=== PATIENT | female | born 1930 | race Caucasian/White ===

== ENCOUNTER 2016-04-23 04:03 | Inpatient (IN) | payer MEDICARE, BC ==
--- NOTE | ~2016-04-23 | CO ---
Unit #: [id number] #: [id number] Patient: TALISHA THOMPSON [id number] [address] [address] [id number] I MR#: [id number] NAME: TALISHA THOMPSON ROOM: 203 Age: 85 Sex: F Admission Date: 04/23/2016 : 1930 Attending Physician: Devante Ford M.D. Primary Care Physician: Agustin Jones D.O. Consultation Date: 04/23/2016 CONSULTATION REPORT REASON FOR CONSULTATION Small bowel obstruction. Thank you very much for asking us to see Ms. Thompson. HISTORY OF PRESENT ILLNESS She is an 85-year-old white female, who presents at this time with abdominal pain, nausea, and vomiting. This is dramatically better at this time. She has had multiple admissions for partial small bowel obstruction in the past which have resolved with conservative therapy. She has had multiple previous abdominal surgeries including a colonic resection and cholecystectomy as well as ventral hernia repair. She had a CT scan performed, which revealed a high-grade small bowel obstruction which is similar to what she has had in the past. She denies any GI bleeding. She states she feels dramatically better. Of note, she states she was discharged home from [facility] yesterday after being treated for a "mini stroke." PAST MEDICAL HISTORY Atrial fibrillation, myocardial infarction, hypertension, depression, reflux, bronchitis, COPD, diverticulitis, hysterectomy, partial colectomy, ventral hernia, benign breast biopsy, carpal tunnel release, fractured ankle, back surgery, bladder repair, hypothyroidism. ALLERGIES Penicillin and sulfa. MEDICATIONS Please see med rec sheet. FAMILY HISTORY Noncontributory. SOCIAL HISTORY No tobacco or alcohol use. REVIEW OF SYSTEMS Negative except for above. IMMUNIZATION STATUS Unknown. PHYSICAL EXAMINATION Unit #: [id number] #: [id number] Patient: TALISHA THOMPSON GENERAL: Well-developed, well-nourished white female, in no apparent distress. Awake, alert, and oriented VITAL SIGNS: Temperature is 97.7, pulse 79, respirations are 20, blood pressure 129/73. NECK: Supple. No thyromegaly or adenopathy. BACK: No CVA or spinous tenderness. ABDOMEN: Flat, soft, nontender. No palpable hernias were present. No rebound, peritoneal signs, or masses. DIAGNOSTIC STUDIES LABORATORY RESULTS: Reveal the patient to have a CMP that shows a glucose of 148, BUN 30, chloride 96, and normal liver function studies. PT is 19.9, PTT is 30.1. White count is 13.8, hemoglobin 16.1, hematocrit 48.3. Urinalysis is negative nitrites, trace leukocyte esterase. IMPRESSION An 85-year-old female with a recurrent partial small bowel obstruction. She feels dramatically better at this time. We will discontinue her NG tube and continue n.p.o., advise to check films in the morning. She may need a small-bowel follow-through. The patient requested Dr. Mccarthy to see the patient for evaluation as well. We will make arrangements for this. Dictated by... Mateus Alcaraz/trinity TD: 04/24/2016 01:42 JOB #: [id number] CC: Leonardo Mccarthy M.D. [facility] CONSULTATION REPORT X Henry Nguyen MD X CONSULTATION REPORT
--- NOTE | ~2016-04-23 | CR2 ---
[facility] A Service of [facility] & [facility] RADIOLOGY TEXT RESULTS PATIENT: TALISHA THOMPSON LOCATION: C2A : 32 UNIT #: [id number] AGE: [address]: Devante Ford MD SEX: F ORDER DR: [id number] [facility] [address] [place], [place] [address] [id number] I MR#: [id number] Acc #: [id number] NAME: TALISHA THOMPSON : 1930 SEX: F STUDY DATE/TIME: 04/24/2016 07:46 UNIT: C2A ROOM: 203 STUDY DESCRIPTION: CR Abdomen Acute Series Attending Physician: Devante Ford M.D. Ordering Physician: Henry Nguyen M.D. Primary Care Physician: Agustin Jones D.O. MEDICAL IMAGING REPORT This report is preliminary unless electronic signature is present EXAM Acute abdomen series 04/24/2016 0746 hours HISTORY 5-day history of vomiting, nausea and small bowel obstruction for followup. COMPARISON CT abdomen 04/23/2016 and chest x-ray 04/20/2016. FINDINGS Portable upright chest demonstrates mild cardiomegaly. The aorta is tortuous without change. The lungs are clear and there are no effusions. Supine and upright views of the abdomen demonstrate no free air. There is contrast material within the colon demonstrating progression beyond the point of transition in the left lower quadrant seen on the CT scan of 04/23/2016. On that scan at 0543 hours on 04/23/2016, the oral contrast material was in the stomach. It has traversed to the sigmoid colon. There is a decrease in the amount of small bowel dilatation suggesting interval improvement. Multiple surgical clips are noted in the left upper quadrant and left lower quadrant. IMPRESSION 1. No acute findings in the chest. 2. There is less small bowel distension than seen on CT scan 04/23/2016. There is oral contrast material in the right colon, transverse colon and descending colon. This contrast was in the stomach on the CT of 04/23/2016 at 0543 hours suggesting that the small bowel obstruction is improved or intermittent. 3. No suspicious calcifications. Dictated by... Diane Verma M.D. [facility] A Service of [facility] RADIOLOGY TEXT RESULTS PATIENT: TALISHA THOMPSON LOCATION: [facility] 203-01 : 32 UNIT #: [id number] AGE: [address]: Devante Ford MD SEX: F ORDER DR: THIS IS AN ELECTRONICALLY VERIFIED REPORT Diane Verma M.D. at 04/24/2016 11:43 AM ETELVINA/dianne TD: 04/24/2016 09:21 JOB #: [id number] MEDICAL IMAGING REPORT COPY
--- NOTE | ~2016-04-23 | HP ---
Unit #: [id number] #: [id number] Patient: TALISHA THOMPSON [id number] [address] [place], [place] [address] [id number] I MR#: [id number] NAME: TALISHA THOMPSON ROOM: 203 Age: 85 Sex: F Admission Date: 04/23/2016 : 1930 Attending Physician: Devante Ford M.D. Primary Care Physician: Agustin Jones D.O. HISTORY AND PHYSICAL CHIEF COMPLAINT Abdominal pain, nausea and vomiting. HISTORY OF PRESENT ILLNESS The patient is an 85-year-old lady with a past medical history of diverticulosis, history of glmn-kc-wocv colocolonic anastomosis near the ileosigmoid colon, A fib - on chronic anticoagulation, hypertension. Presented to the [facility] Emergency Room with the chief complaint of nausea and vomiting. She was complaining of diffuse abdominal pain. She mentions she woke up in the night during sleep because of abdominal pain, nausea and vomiting. In the emergency room on initial workup she was noted to have a small bowel obstruction. She had an NG tube placed. A lot of food was aspirated, and slowly the pain was relieved. She mentions she had a bowel movement yesterday morning. Denies noting any blood in her stool. Denies any diarrhea. Denies any (1) recently. The ER physician spoke with Dr. Mueller with [facility], and the patient was transferred here for further care. She was seen by Dr. Mccarthy, also, in the past. PAST MEDICAL HISTORY 1. History of A fib, on anticoagulation with Coumadin. 2. COPD. 3. History of small bowel obstruction. 4. History of congestive heart failure. 5. Hypertension. 6. GERD. 7. Depression. 8. History of GA in 2000. 9. History of stroke in the past and a TIA. She was recently discharged less than a week ago from [facility] where she was admitted for TIA-like symptoms. ALLERGIES Penicillin, sulfa and Dilaudid. PAST SURGICAL HISTORY Hysterectomy, abdominal hernia repair x2, history of left breast cyst surgery, right ankle and bilateral carpal tunnel surgeries, bilateral cataract surgery, right thumb surgery, back surgery, bladder repair, history of colon resection. Unit #: [id number] #: [id number] Patient: TALISHA THOMPSON HOME MEDICATIONS 1. Toprol XL 50 mg daily. 2. Cardizem 180 mg daily. 3. Remeron 30 mg q.p.m. 4. Phenergan 25 mg q.6 p.r.n. nausea and vomiting. 5. Bupropion SR 300 mg daily. 6. Ventolin 2 puffs q.i.d. 7. Albuterol 3 mL nebulizations q.i.d. 8. Lumigan 1 drop daily both eyes. 9. Colace 100 mg daily. 10. Flonase 0.05% nasal spray daily. 11. Vitamin D 1,000 units p.o. daily. 12. Tylenol p.r.n. 13. Coumadin 4 mg daily except Mondays and . Those days she is supposed to be on 5 mg. 14. KCl 10 mEq daily. 15. Nitroglycerin 0.4 mg sublingual p.r.n. chest pain. 16. Lasix 40 mg daily. 17. Lipitor 10 mg at bedtime. 18. Aspirin 81 mg daily. 19. Protonix 40 mg daily. 20. Bentyl 20 mg p.o. q.6 p.r.n. stomach cramps. SOCIAL HISTORY Denies any current smoking, alcohol. FAMILY HISTORY Noncontributory to the current admission. REVIEW OF SYSTEMS A complete review of systems is done; negative except for what is mentioned in the HPI. PHYSICAL EXAMINATION VITAL SIGNS: Temperature 97.7, pulse rate 79, recently rate 20, blood pressure 129/73. GENERAL: The patient is alert and oriented x3, lying in the bed. No acute distress. HEENT: Normocephalic, atraumatic. No icterus. PERRLA. Extraocular muscles are intact. She does have an NG tube in place. HEART: S1, S2. Regular rate and rhythm. CHEST: Bilaterally equal air entry. Clear to auscultation. ABDOMEN: Soft, nondistended. Bowel sounds decreased. EXTREMITIES: No edema. Normal pulses. DIAGNOSTIC DATA LABORATORY: Glucose 148, BUN 30, creatinine 1.3, sodium 138, potassium 3.8, chloride 96, bicarb 30. WBC 13.8, hemoglobin 16.1, platelet count 269. ASSESSMENT AND PLAN 1. Small bowel obstruction. Will keep her NPO. Will give her IV fluids. Continue with NG suction. Will consult [facility] and will go from their input. Morphine p.r.n. and p.r.n. Zofran. 2. History of hypertension. She was on beta-blockers and multiple other medications. Will keep her on p.r.n. hydralazine and, if required, will consider starting her on p.r.n. beta-kyle. 3. A fib, on chronic anticoagulation with Coumadin. Will keep her on Lovenox and for now hold Coumadin. Unit #: [id number] #: [id number] Patient: TALISHA THOMPSON 4. History of depression. Will hold her oral medications at this point. Will monitor and replace her electrolytes. 5. Further recommendations per hospital course. Dictated by Mateus Coombs TD: 04/23/2016 10:29 JOB #: [id number] HISTORY AND PHYSICAL X X HISTORY AND PHYSICAL
--- NOTE | ~2016-04-23 | CR236 ---
[facility] A Service of [facility] RADIOLOGY TEXT RESULTS PATIENT: TALISHA THOMPSON LOCATION: C2A : 32 UNIT #: [id number] AGE: [address]: Devante Ford MD SEX: F ORDER DR: [id number] [facility] [address] [place], [place] [address] [id number] I MR#: [id number] Acc #: [id number] NAME: TALISHA THOMPSON : 1930 SEX: F STUDY DATE/TIME: 04/24/2016 10:35 UNIT: C2A ROOM: 203 STUDY DESCRIPTION: CR Small Bowel Sbft W Films Attending Physician: Devante Ford M.D. Ordering Physician: Luis Armando Vicente M.D. Primary Care Physician: Agustin Jones D.O. MEDICAL IMAGING REPORT This report is preliminary unless electronic signature is present EXAM Small bowel follow through. INDICATION Miss Thompson is an 85-year-old lady who had a CT of the abdomen and pelvis without contrast on April 23, 2016. This showed multiple distended loops of small bowel, as well as a relatively decompressed colon. Findings were certainly suggestive of small bowel obstruction. FINDINGS Initial maitre d image was obtained. Patient had an acute abdominal series today which showed oral contrast material from the patient's previous CT. Small bowel loops really did not appear particularly dilated on this examination. He was subsequently administered oral contrast material and sequential images were obtained. Patient was noted to have oral contrast material within the colon on the 60-minute images. There are some persistently dilated small bowel loops seen within the left upper quadrant, which may reflect either some localized ileus or potentially some persistent mild obstruction. Terminal ileum could not be well assessed due to adjacent contrast material. However, certainly it appeared to be normal on prior study from April 23, 2016. A total of 6 fluoroscopic images were obtained. Total fluoroscopy time was 0.5 minutes. IMPRESSION Even on maitre d images, this patient was noted to have some residual oral contrast material within the colon from the prior study from April 23, 2016. Subsequently, she had small bowel transit time of 60 minutes which is within normal limits. However, there are some persistently dilated loops of small bowel seen within the left upper quadrant and I do think that the patient probably does have some localized ileus and probably some milder intermittent obstruction within the jejunum. [facility] A Service of [facility] RADIOLOGY TEXT RESULTS PATIENT: TALISHA THOMPSON LOCATION: [facility] : 32 UNIT #: [id number] AGE: [address]: Devante Ford MD SEX: F ORDER DR: Dictated by... Alba Saxena M.D. THIS IS AN ELECTRONICALLY VERIFIED REPORT Alba Saxena M.D. at 04/25/2016 4:39 PM AFF/jose e TD: 04/25/2016 10:52 JOB #: [id number] MEDICAL IMAGING REPORT COPY
--- NOTE | ~2016-04-23 | CT4 ---
[facility] A Service of [facility] RADIOLOGY TEXT RESULTS PATIENT: TALISHA THOMPSON LOCATION: [facility] 203-01 : 32 UNIT #: [id number] AGE: [address]: Devante Ford MD SEX: F ORDER DR: [id number] [address] [address] [id number] MR#: [id number] Acc #: [id number] NAME: TALISHA THOMPSON : 1930 SEX: F STUDY DATE/TIME: 04/23/2016 UNIT: SED ROOM: STUDY DESCRIPTION: CT Abd and Pelv Wo Cont Attending Physician: Татьяна Stephens M.D. Ordering Physician: Sha Black M.D. Primary Care Physician: Agustin Jones D.O. MEDICAL IMAGING REPORT This report is preliminary unless electronic signature is present. EXAM CT abdomen and pelvis 04/23 at 05:43 hours INDICATIONS Abdominal pain with nausea and vomiting since Thursday of this week. Pain is currently 9/10. TECHNIQUE Axial images were obtained through the abdomen and pelvis following oral contrast administration. Multiplanar reformats were obtained. Comparison is made with 11/24/2015. The CT exam was performed with one or more of the following radiation dose reduction techniques: automatic exposure control, adjustment of mA and/or kV according to patient size, and iterative reconstruction. FINDINGS Abdomen: There is elevation of the left hemidiaphragm and there is some atelectasis in both bases, left greater than right. Gallbladder is unremarkable. Cysts in the right hepatic lobe are stable. No renal or ureteral stones are seen and there is no hydronephrosis. The unenhanced solid organs are otherwise normal. There is diffuse atherosclerotic disease, but there is no aortic aneurysm. Patient is status post ventral wall hernia repair with mesh. There is diffuse colonic diverticulosis. There is a high-grade small bowel obstruction. The dilated jejunal loop in the left mid abdomen measures 3.6 cm in diameter. A dilated small bowel loop in the midabdomen measures about 4.4 cm. This is very similar in appearance to the previous exam. No free air. Pelvis: There is colonic diverticulosis without focal diverticulitis. [facility] A Service of [facility] RADIOLOGY TEXT RESULTS PATIENT: TALISHA THOMPSON LOCATION: C2A 203-01 : 32 UNIT #: [id number] AGE: [address]: Devante Ford MD SEX: F ORDER DR: Dilated small bowel loops are noted in the left lower quadrant with some feculent material within them. The distal ileum is completely decompressed. Again, this is very similar to the prior study. The transition zone appears to be in the left lower quadrant. Uterus is surgically absent. There are no lower ureteral stones. The bladder is normal. There is a trace amount of dependent free fluid. There is diffuse degenerative disease in the spine. IMPRESSION 1. High-grade small bowel obstruction with a transition zone in the left lower quadrant. No obstructing lesion is seen and this may be secondary to adhesions. This is very similar in appearance to the 11/24/2015 exam. Distal ileum is decompressed. 2. Fairly diffuse colonic diverticulosis without evidence for acute diverticulitis. 3. Extensive atherosclerotic disease. 4. Hysterectomy and ventral wall hernia repair. 5. Small volume of free fluid in the dependent pelvis, likely reactive. Dictated by... Agustin Pickett Jr., M.D. THIS IS AN ELECTRONICALLY VERIFIED REPORT Agustin Pickett Jr., M.D. at 04/23/2016 9:18 PM UDAY/ham TD: 04/23/2016 10:42 JOB #: [id number] MEDICAL IMAGING REPORT
--- NOTE | ~2016-04-23 | CO ---
Unit #: [id number] #: [id number] Patient: TALISHA THOMPSON [id number] [facility] [place], [place] [address] [id number] I MR#: [id number] NAME: TALISHA THOMPSON ROOM: 203 Age: 85 Sex: F Admission Date: 04/23/2016 : 1930 Attending Physician: Devante Ford M.D. Primary Care Physician: Agustin Jones D.O. Consultation Date: 04/23/2016 CONSULTATION REPORT PRIMARY CARE PHYSICIAN Dr. Agustin Jones. REASON FOR CONSULTATION Distal small bowel obstruction. HISTORY OF PRESENT ILLNESS Ms. Thompson is a very pleasant 85-year-old white female. The patient has been seeing me in the office for many years. She apparently came with nausea and vomiting and central periumbilical abdominal pain and found to have a high-grade small bowel obstruction based upon her x-rays and CAT scan. She says she has been passing gas until yesterday. The patient was recently at [facility] for what she describes as having had mini stroke. PAST MEDICAL HISTORY Significant for history of COPD, small-bowel obstruction in the past, history of congestive heart failure, hypertension, GERD, depression, myocardial infarction and stroke which made her walk around with a walker, history of atrial fibrillation, and long-term anticoagulation with Coumadin. PAST SURGICAL HISTORY Included hysterectomy, cataract surgery, back surgery, bladder repair, history of colon resection, history of abdominal herniorrhaphy, left breast cyst removal, carpal tunnel surgery. HOME MEDICATIONS Include the following; Toprol, Cardizem, Remeron, Phenergan, bupropion, Ventolin, albuterol, Colace, Flonase, vitamin D, Tylenol, Coumadin, potassium, nitroglycerin, Lasix, aspirin, Lipitor, Protonix, and Bentyl. ALLERGIES She is allergic to penicillin, sulfonamides, and Dilaudid. SOCIAL HISTORY She has never smoked or drink alcohol. She became 3 to 4 years ago and this has affected her tremendously. She still misses her . FAMILY HISTORY None of colon, pancreatic cancer, or liver disease. Unit #: [id number] #: [id number] Patient: TALISHA THOMPSON REVIEW OF SYSTEMS Detailed review of organ systems does not reveal any recent weight loss. No history of fever, chills, or rigors. No history of headache, seizures, chest pain, or syncope. No history of cough, expectoration, or hemoptysis. No history of dysuria, hematuria, or pyuria. No history of focal seizures or extremity weakness. PHYSICAL EXAMINATION GENERAL: She is alert and oriented, appears comfortable. VITAL SIGNS: Stable with a temperature of 98.1. Her heart rate is 74 per minute and regular, and blood pressure is 146/80. She weighs 131 pounds which is lowest weight recorded in the past. Her baseline weight has been about 134 pounds. HEENT: She has no pallor, icterus, lymphadenopathy, or peripheral edema. CARDIOVASCULAR: Normal heart sounds. No murmurs on auscultation. LUNGS: Reveal normal breath sounds. Good air entry. ABDOMEN: Soft and nontender. Liver and spleen are not palpable. Bowel sounds normal. The patient does have an indwelling nasogastric suction tube in place and it has drained about 400 mL of bilious material. DIAGNOSTIC STUDIES IMAGING STUDIES: The patient's CT scan does suggest possibility of distal small bowel obstruction. CLINICAL IMPRESSION The patient with distal small bowel obstruction. Noteworthy that she has done this in the past and had responded conservative treatment. At least for now that is what is being contemplated by Dr. Nguyen who has seen her earlier today and I will continue with the same. Considerable time was spent to reassure Ms. thompson that the obstructive symptoms may resolve spontaneously. However, there is a possibility that she may require intervention or surgery depending upon her response to conservative management. Thank you very much for asking me to see this pleasant woman. I appreciate the consult. Dictated by... Mateus Piper/trinity TD: 04/26/2016 07:03 JOB #: [id number] CONSULTATION REPORT X Leonardo Mccarthy MD CONSULTATION REPORT
--- NOTE | ~2016-04-23 | DS ---
Unit #: [id number] #: [id number] Patient: TALISHA THOMPSON [id number] [facility] [address] [place], [place] [address] [id number] I MR#: [id number] NAME: TALISHA THOMPSON ROOM: 203 Age: 85 Sex: F Admission Date: 04/23/2016 : 1930 Discharge Date: 04/24/2016 Attending Physician: Devante Ford M.D. Primary Care Physician: Agustin Jones D.O. DISCHARGE SUMMARY CONSULTANTS 1. Dr. Rowell. 2. Dr. Leonardo Mccarthy. CHIEF COMPLAINT Abdominal pain, nausea and vomiting for the diagnosis of possible ileus versus small bowel obstruction, history of AFib on anticoagulation with Coumadin, COPD, history of small bowel obstructions in the past, history of congestive heart failure, hypertension, GERD, depression, history of stroke and TIA in the past. HISTORY OF PRESENTING ILLNESS The patient is an 84-year-old lady with multiple medical problems including diverticulosis, history of AFib on chronic anticoagulation, hypertension, who presented initially to [facility] with chief complaint of nausea, vomiting and abdominal pain. HOSPITAL COURSE She got an NG tube placed and she was started on suction. She was transferred to [facility] for further care. In the hospital course, she was started on IV fluids, kept n.p.o. and the NG tube was removed. Her bowel function resumed activity. She did have bowel movements. She was able to tolerate an oral diet. She is very eager to go home. I discussed with Dr. Mccarthy this afternoon. He mentioned it is okay to discharge if she tolerates the diet. I requested her to follow with Dr. Mccarthy and her primary care in one to two weeks. Kindly note we did not change any medications. She will be resuming her home medications. HOME MEDICATIONS 1. Ventolin two puffs q.i.d. p.r.n. shortness of breath. 2. Albuterol 3 mL nebulization four times a day. 3. Tylenol p.r.n. 4. Flonase 0.05% nasal spray daily. 5. Coumadin 4 mg daily except Thursday and Thursday. Those days she will be taking 5 mg. 6. Wellbutrin SR 300 mg daily. 7. Remeron 30 mg every evening. 8. Phenergan 25 mg q.6 p.r.n. nausea. 9. Bentyl 20 mg q.6 p.r.n. cramps. 10. Cardizem 180 mg daily. 11. Metoprolol XL 50 mg daily. 12. Colace 100 mg daily. 13. Lasix 40 mg daily. 14. Lipitor 10 mg daily. Unit #: [id number] #: [id number] Patient: TALISHA THOMPSON 15. Latanoprost eye drops. 16. Aspirin 81 mg daily. 17. Protonix 40 mg daily. 18. KCl 10 mEq p.o. daily. 19. Nitroglycerin 0.4 mg sublingual p.r.n. chest pain. 20. Vitamin D, cholecalciferol, 1,000 units p.o. daily. She is instructed to follow with primary care in one week. Total time spent in her care-28 minutes. Dictated by... Mateus Coombs/kadi TD: 04/25/2016 06:17 JOB #: [id number] DISCHARGE SUMMARY X X DISCHARGE SUMMARY
[2016-04-23 04:02] LABS: BASOPHIL% 0.3 % (0-2.5); EOSINOPHIL# 0.1 X10e3 (0-0.7); EOSINOPHIL% 0.6 % (0.0-7.0); HEMATOCRIT 48.3 % (35.0-45.0); HEMOGLOBIN 16.1 gm/dL (12.0-16.0); LYMPHOCYTE% 7.2 % (17.0-45.0); MEAN CELL VOLUME 96.6 FL (83-96); MEAN CORPUSCULAR HEMOGLOBIN 32.1 PG (28-34); MEAN CORPUSCULAR HGB CONC 33.3 g/dL (30-36); MEAN PLATELET VOLUME 8.9 FL (6.5-11.5); MONOCYTE# 0.7 X10e3 (0-1.0); MONOCYTE% 5.2 % (3.0-12.0); NEUTROPHIL# 11.9 X10e3 (1.5-7.1); NEUTROPHIL% 86.7 % (40-75); PLATELET COUNT 269 X10e3 (140-420); RED CELL DISTRIBUTION WIDTH 14.1 % (11.0-15.5); WHITE BLOOD COUNT 13.8 X10e3 (4.0-10.5)
[~2016-04-23 04:03] MED LIST: ADVAIR 2501 DISK W/1; ALBUTEROL MININEB NEB; ALBUTEROL0.83 MG/ML IH; ALBUTEROL17 GM; ALBUTEROL17 GM INH; ALBUTEROL20 ml INH; ALIGN4 MG PO; ALPRAZOLAM PO; AMIODARONE PO; ASPIRIN PO; BENTYL20 MG PO; BETIMOL5 ML; BUSPAR PO; CALCIUM 600 + D1 TA1 PO; CARDIZEM CD PO; CARDIZEM CD180 M1 PO; CARDIZEM SR; CIPRO PO; CITRACAL200 M1 PO; CITRACAL200 MG; CITRACAL200 MG PO; CITRUCEL CLEAR539 GM PO; COLACE; COMBIGAN EYE DRO5 ML OP; COMBIGAN EYE DRO5 ML OU; COMBIVENT U/D3 M2 INH; COUMADIN; COUMADIN PO; COUMADIN1 MG PO; COUMADIN4 MG PO; COUMADIN5 MG PO; COUMADIN6 MG PO; DARVOCET-N 1001 TAB PO; DELTASONE20 MG PO; DICYCLOMINE HCL20 MG PO; DILTIAZEM 24HR180 M1 PO; DILTIAZEM 24HR180 MG PO; DOC-Q-LACE100 MG PO; FIBERCON625 MG; FLAGYL PO; FLEXERIL10 MG PO; FLINTSTONES GU1 EACH PO; FLONASE 0.05% N16 GM; GUMMI BEAR1 TAB.CHEW PO; HYDROCODON-ACE1 EAC7 PO; INDOMETHACIN50 MG PO; K-DUR20 ME1 PO; KCL PO; KLOR-CON PO; LASIX; LASIX PO; LASIX20 MG PO; LEXAPRO PO; LIPITOR20 MG PO; LORTAB 5-325 M1 EACH PO; LORTAB 5/500 TA1 TA1 PO; LOVENOX SUBQ; LUMIGAN2.5 ML OP; LUNESTA PO; MACROBID100 MG PO; MEDROL DOSEPAK4 MG PO; MEDROL PO; METOPROLOL SUCC50 MG PO; MILK OF MAGNESIA PO; MIRALAX POWDER; MIRALAX17 GM PO; MULTI VITAMIN1 EACH PO; MULTI-DAY VITAM1 TAB PO; NITROGLYCERIN0.4 MG SL; OXYGEN IH; OYSTER SHELL C500 MG PO; PAIN RELIEF650 MG PO; PHENERGAN PO; PHENERGAN PR; PHENERGAN25 M1 PO; PHENERGAN25 MG PO; POTASSIUM CHLO10 ME1 PO; PREDNISONE PO; PRILOSEC PO; PRILOSEC2.5 MG; PRILOSEC20 MG PO; PROBIOTIC250 MG PO; PYRIDIUM PO; REMERON PO; REMERON15 MG PO; SKELAXIN PO; STOOL SOFTENER50 MG PO; TESSALON PERLE100 M1 PO; TIMOPTIC 0.5% OP5 M2 OD; TOPROL XL PO; TOPROL XL50 MG PO; TRAMADOL HCL50 M1 PO; ULTRAM PO; VANTIN200 MG PO; VISTARIL; VITAMIN C PO; VITAMIN D 4001 UDTAB PO; VITAMIN D-32000 UNIT PO; VITAMIN D1000 UNI1 PO; WARFARIN SODIUM2 MG PO; WELLBUTRIN PO; WELLBUTRIN SR PO; WELLBUTRIN XL PO; ZITHROMAX PO; ZITHROMAX1 G/PKT PO; ZOFRANODT PO; ZYLOPRIM PO; [UNRECOGNIZED DRUG - OTHER]
[2016-04-23 04:04] LABS: DIFF IND NO
[2016-04-23 04:09] LABS: INR 1.8; PROTHROMBIN TIME (PATIENT) 19.9 SECONDS (9.5-12.4)
[2016-04-23 04:16] LABS: PARTIAL THROMBOPLASTIN TIME 30.1 SECONDS (25.6-38.1)
[2016-04-23 04:19] LABS: ALBUMIN SERUM 4.4 g/dL (3.5-5.0); BILIRUBIN, DIRECT 0.1 mg/dL (0.0-0.2); BILIRUBIN,INDIRECT 0.7 mg/dL (0.0-0.9); BILIRUBIN,TOTAL 0.8 mg/dL (0.2-2.0); BUN/CREATININE RATIO 23.07; CALCIUM SERUM 9.8 mg/dL (8.4-10.2); CREATININE SERUM 1.3 mg/dL (0.6-1.4); GLOM FILT RATE Estimated 41.6 mL/min (>60); POTASSIUM 3.8 mmol/L (3.5-5.1); PROTEIN TOTAL SERUM 7.4 g/dL (6.0-8.3)
[2016-04-23 04:50] LABS: URINE SOURCE CLEAN CATCH
[2016-04-23 04:52] LABS: URINE APPEARANCE CLEAR; URINE BILIRUBIN NEG (NEG); URINE BLOOD TRACE-INTACT (NEG); URINE COLOR YELLOW; URINE GLUCOSE NEG (NORM); URINE KETONE TRACE (NEG); URINE LEUKOCYTE ESTERASE TRACE (NEG); URINE NITRATE NEG (NEG); URINE PROTEIN NEG (NEG); URINE SPECIFIC GRAVITY >=1.030 (1.003-1.035); URINE UROBILINOGEN 0.2 MG/DL (NORM)
[2016-04-23 04:53] LABS: MICRO INDICATED? YES
[2016-04-23 04:54] LABS: CULTURE INDICATED? NO; URINE BACTERIA NEG (NEG); URINE MUCUS PRESENT; URINE SQUAMOUS EPITHELIAL CELL OCCAS /[HPF]; URINE TRANSITIONAL EPI CELLS FEW /[HPF]; URINE WBC 0-2 /[HPF] (0-5)
[2016-04-23] MEDS ORDERED: LIPITOR PO (10:02)
[2016-04-23] MEDS ORDERED: FUROSEMIDE40 MG PO (10:02)
[2016-04-23] MEDS ORDERED: PROTONIX PO (10:03)
[2016-04-23] MEDS ORDERED: BAYER CHEWABLE81 MG PO (10:03)
[2016-04-23] MEDS ORDERED: BENTYL20 MG PO (10:04)
[2016-04-24 06:23] LABS: HEMATOCRIT 40.8 % (35.0-45.0); MEAN CELL VOLUME 97.9 FL (83-96); MEAN CORPUSCULAR HEMOGLOBIN 32.8 PG (28-34); MEAN CORPUSCULAR HGB CONC 33.5 g/dL (30-36); RED BLOOD COUNT 4.17 X10e (3.90-5.30); RED CELL DISTRIBUTION WIDTH 14.1 % (11.0-15.5)
[2016-04-24 06:32] LABS: HEMOGLOBIN 13.7 gm/dL (12.0-16.0); WHITE BLOOD COUNT 6.1 X10e3 (4.0-10.5)
[2016-04-24 06:40] LABS: INR 1.4; PROTHROMBIN TIME (PATIENT) 14.7 SECONDS (9.6-11.5)
[2016-04-24 06:58] LABS: BUN/CREATININE RATIO 16.36; CALCIUM SERUM 8.4 mg/dL (8.4-10.2); CREATININE SERUM 1.1 mg/dL (0.6-1.4); GLOM FILT RATE Estimated 50.4 mL/min (>60); POTASSIUM 3.6 mmol/L (3.5-5.1)
[2016-04-24] MEDS ORDERED: PHENOL-SODIUM180 M1 PO (17:08)
== END 2016-04-24 17:44 | disposition home or self-care (01) | DRG 389 ==
LOC: SED 04:03 → C2A 07:10
PROVIDERS: Emergency Medicine; Internal Medicine
PROC: 0D9670Z Drainage of Stomach with Drainage Device, Via Natural or Artificial Opening (ICD-10-PCS; principal; 2016-04-23)
DX: K56.7 Ileus, unspecified (principal); G45.9 Transient cerebral ischemic attack, unspecified; I48.91 Unspecified atrial fibrillation; I11.0 Hypertensive heart disease with heart failure; I50.9 Heart failure, unspecified; E78.5 Hyperlipidemia, unspecified; K21.9 Gastro-esophageal reflux disease without esophagitis; F32.9 Major depressive disorder, single episode, unspecified; Z90.710 Acquired absence of both cervix and uterus; Z98.49 Cataract extraction status, unspecified eye; Z88.0 Allergy status to penicillin; Z88.2 Allergy status to sulfonamides; I25.2 Old myocardial infarction; R53.1 Weakness; R20.9 Unspecified disturbances of skin sensation; I25.10 Atherosclerotic heart disease of native coronary artery without angina pectoris; J44.9 Chronic obstructive pulmonary disease, unspecified; Z79.899 Other long term (current) drug therapy
CPT/HCPCS: 36415; 70450; 71010; 74022; 74176; 74250; 80048; 80076; 81003; 82150; 82553; 82565; 82947; 83605; 83690; 83874; 84484; 85025; 85027; 85610; 85730; 87086; 93005; 94640; 94760; 96374; 96375; 96376; 99285; C9113; J1650; J2270; J2405; J2550

== ENCOUNTER 2016-06-16 05:41 | Inpatient (IN) | payer MEDICARE, BC ==
--- NOTE | ~2016-06-16 | CR2 ---
[facility] A Service of [facility] & [facility] RADIOLOGY TEXT RESULTS PATIENT: TALISHA THOMPSON LOCATION: [facility] 306- : 32 UNIT #: [id number] AGE: [address]: Jorge L Mandujano MD SEX: F ORDER DR: [id number] [facility] [address]. [place], [place] [address] [id number] I MR#: [id number] Acc #: [id number] NAME: TALISHA THOMPSON : 1930 SEX: F STUDY DATE/TIME: 06/17/2016 4:29 UNIT: A U ROOM: [facility] STUDY DESCRIPTION: CR Abdomen Acute Series Attending Physician: Katya Cevallos M.D. Ordering Physician: Faisal Bartholomew M.D. Primary Care Physician: Agustin Jones D.O. MEDICAL IMAGING REPORT This report is preliminary unless electronic signature is present EXAM Acute abdominal series 06/17/2016 HISTORY Nausea, vomiting and upper abdominal pain for 1 day. History of partial small bowel obstruction. Atrial fibrillation, previous myocardial infarction and previous stroke. Previous abdominal hernia surgery. COMPARISON Acute abdominal series 04/24/2016. CT abdomen and pelvis without contrast 06/16/2016. FINDINGS There is stable moderate cardiac enlargement. Lungs appear free of acute airspace disease. No pleural effusion or pneumothorax is identified. There is abnormally dilated small bowel loop within the left kgr-ps-plopw abdomen, dilated up to 3.4 cm, worrisome for partial small bowel obstruction. Findings correspond to the CT abdomen from 06/16/2016. Signs of ventral hernia repair, and multiple surgical clips are seen within the left lateral abdomen. No gross free air or pneumatosis is seen. IMPRESSION 1. Abnormally dilated left lower abdominal small bowel loop worrisome for at least partial small bowel obstruction. Enteric contrast is seen more distally within the colon indicating a complete obstruction at this time. 2. Stable ffls-ln-bpjrsvhf cardiac enlargement. Dictated by... Teresa Wynn M.D. THIS IS AN ELECTRONICALLY VERIFIED REPORT [facility] A Service of [facility] & [facility] RADIOLOGY TEXT RESULTS PATIENT: TALISHA THOMPSON LOCATION: [facility] 306-01 : 32 UNIT #: [id number] AGE: [address]: Jorge L Mandujano MD SEX: F ORDER DR: Teresa Wynn M.D. at 06/17/2016 9:58 PM LOLIS/dianne TD: 06/17/2016 06:27 JOB #: [id number] MEDICAL IMAGING REPORT Page 1 of 1 COPY
--- NOTE | ~2016-06-16 | HP ---
Unit #: [id number] #: [id number] Patient: TALISHA THOMPSON [id number] [address] [address] [id number] I MR#: [id number] NAME: TALISHA THOMPSON ROOM: 306 Age: 85 Sex: F Admission Date: 06/16/2016 : 1930 Attending Physician: Katya Cevallos M.D. Primary Care Physician: Agustin Jones D.O. HISTORY AND PHYSICAL CHIEF COMPLAINT Nausea and vomiting. HISTORY OF PRESENT ILLNESS The patient is an 85-year-old female with a history of diverticulosis, history of bjbg-rm-dmga colocolonic anastomosis near the ileosigmoid colon, atrial fibrillation, on chronic anticoagulation, and hypertension, brought to the emergency room complaining of nausea and vomiting. The patient also complains of diffuse abdominal pain mainly in the epigastric region that started at 3 a.m. this morning. The patient had a CT of the abdomen and pelvis that showed a partial small bowel obstruction and is being admitted for the above reasons. The patient complains of nausea and denies any vomiting. The patient has had multiple episodes of partial small bowel obstruction in the past that resolved conservatively. PAST MEDICAL HISTORY 1. Atrial fibrillation. 2. Hypertension. 3. Chronic obstructive pulmonary disease. 4. Small bowel obstruction. 5. Gastroesophageal reflux disease. 6. Depression. 7. Myocardial infarction. 8. Stroke. PAST SURGICAL HISTORY 1. Hysterectomy. 2. Abdominal hernia repair x2. 3. Left breast cyst surgery. 4. Right ankle surgery. 5. Bilateral carpal tunnel surgery. ALLERGIES Penicillin, sulfa, and Dilaudid. HOME MEDICATIONS 1. Toprol. 2. Cardizem. 3. Remeron. 4. Phenergan. 5. Wellbutrin. 6. Ventolin. Unit #: [id number] #: [id number] Patient: TALISHA THOMPSON 7. Albuterol. 8. Lumigan. 9. Colace. 10. Flonase. 11. Vitamins 12. Tylenol. 13. Coumadin. 14. Potassium. 15. Nitroglycerin. 16. Lasix. 17. Lipitor. 18. Aspirin. 19. Protonix. 20. Bentyl. 21. Phenolate sodium. SOCIAL HISTORY Denies smoking, alcohol, or any illicit drug abuse. FAMILY HISTORY Reviewed and none. REVIEW OF SYSTEMS A 14-point review of systems was performed and only pertinent positive findings are described above. The remaining are negative. PHYSICAL EXAMINATION GENERAL: Patient is lying in bed not in acute distress. VITAL SIGNS: Temperature 98.2, pulse 76, respiratory rate 22, blood pressure 140/78, and saturating 98% on room air. HEENT: Head atraumatic, normocephalic. Pupils equal, round, and reactive to light and accommodation. NECK: Supple. LUNGS: Decreased air entry at the bases. HEART: Irregular rate and rhythm. ABDOMEN: Soft. Tenderness in the epigastric region. No rigidity, no rebound. EXTREMITIES: No cyanosis, no clubbing. NEUROLOGIC: Alert, awake, and oriented. No gross focal motor deficit. DIAGNOSTIC STUDIES LABORATORY: Glucose 113, BUN 28, creatinine 1.2, sodium 141, potassium 3.8, chloride 102, bicarb 29, calcium 9.5, total protein 6.9, albumin 4.1, total bilirubin 0.5, AST 19, ALT 16, and alkaline phosphatase 71. Amylase 7 and lipase 16. Lactic acid is 2. INR is 3.2. WBC 14.1, hemoglobin 15.4, hematocrit 47.4, and platelets 235,000 with neutrophils 82.7. Urinalysis shows 1+ leukocyte esterase, negative bacteria, and negative urine WBCs. IMAGING: CT of the abdomen and pelvis shows multiple mildly dilated loops of proximal and mid small bowel with decompressed distal small bowel loops. The findings are similar in appearance to the prior examination from April 23, 2016, and again suggest a partial small bowel obstruction versus ileus. No significant free fluid or free intraperitoneal air. Uncomplicated pancolonic diverticulosis. Appendix not clearly visualized. No pericecal inflammation. ASSESSMENT Unit #: [id number] #: [id number] Patient: TALISHA THOMPSON 1. Partial small bowel obstruction. 2. Ileus. 3. Coumadin toxicity. PLAN Admit the patient to inpatient with telemetry. Nothing by mouth. Bowel rest. IV fluids, pain medications, and Zofran. [facility] consult. Repeat abdominal series in the morning. Patient can have home medications. Hold Coumadin tonight and check INR in the morning. Further recommendations will follow. Dictated by AmMateus Brenner TD: 06/16/2016 14:45 JOB #: [id number] HISTORY AND PHYSICAL Page 1 of 1 X X HISTORY AND PHYSICAL
--- NOTE | ~2016-06-16 | CT4 ---
[facility] A Service of [facility] & [facility] RADIOLOGY TEXT RESULTS PATIENT: TALISHA THOMPSON LOCATION: A 306-01 : 32 UNIT #: [id number] AGE: [address]: Jorge L Mandujano MD SEX: F ORDER DR: [id number] [facility] [address] [place], [place] [address] [id number] E MR#: [id number] Acc #: [id number] NAME: TALISHA THOMPSON : 1930 SEX: F STUDY DATE/TIME: 06/16/2016 6:59 UNIT: FRANCES ROOM: STUDY DESCRIPTION: CT Abd and Pelv Wo Cont Attending Physician: Erickson Rincon M.D. Ordering Physician: Erickson Rincon M.D. Primary Care Physician: Agustin Jones D.O. MEDICAL IMAGING REPORT This report is preliminary unless electronic signature is present EXAM CT abdomen and pelvis without contrast 06/16/2016 HISTORY 85-year-old female with upper abdominal pain beginning this morning. Nausea and vomiting. COMPARISON CT abdomen and pelvis 04/23/2016. Small bowel series 04/24/2016. TECHNIQUE Helical scan performed through the abdomen and pelvis without IV contrast. Oral contrast only was given. Coronal and sagittal reformatted images. This CT exam was performed with one or more of the following radiation dose reduction techniques: automatic exposure control, adjustment of mA and/or kV according to patient size, and iterative reconstruction. FINDINGS Visualized lung bases are unremarkable. Stable cyst in the right hepatic lobe. Liver, otherwise, unremarkable. The spleen, pancreas, gallbladder, both adrenal glands, and both kidneys are within normal limits allowing for lack of IV contrast. Abdominal aorta normal in course and caliber with extensive atherosclerotic calcification. There are multiple mildly dilated loops of duodenum and jejunum. Distal ileal loops are decompressed and normal in caliber. Findings are similar in appearance to the previous examination from 04/23/2016 and again suggests ileus versus partial small bowel obstruction. The appendix is not clearly visualized. No pericecal inflammation. Pancolonic diverticulosis is noted. No evidence of acute diverticulitis. Ventral abdominal wall hernia repair. No free fluid or free air. STS. [facility] A Service of [facility] & [facility] RADIOLOGY TEXT RESULTS PATIENT: TALISHA THOMPSON LOCATION: [facility] 306-01 : 32 UNIT #: [id number] AGE: [address]: Jorge L Mandujano MD SEX: F ORDER DR: Urinary bladder is unremarkable. Uterus surgically absent. No free pelvic fluid. No acute bony abnormality. IMPRESSION 1. Multiple mildly dilated loops of proximal and mid small bowel with decompressed distal small bowel loops. The findings are similar in appearance to the prior examination from 04/23/2016 and again suggest a partial small bowel obstruction versus ileus. No significant free fluid or free intraperitoneal air. 2. Uncomplicated pancolonic diverticulosis. 3. Appendix not clearly visualized. No pericecal inflammation. 4. Ventral abdominal wall hernia repair. 5. Hysterectomy. Dictated by... Alan Dunbar M.D. THIS IS AN ELECTRONICALLY VERIFIED REPORT Alan Dunbar M.D. at 06/17/2016 6:38 PM ERNST/meghan TD: 06/16/2016 09:03 JOB #: [id number] MEDICAL IMAGING REPORT Page 1 of 1 COPY
--- NOTE | ~2016-06-16 | DS ---
Unit #: [id number] #: [id number] Patient: TALISHA THOMPSON [id number] [facility] [address] [place], [place] [address] [id number] I MR#: [id number] NAME: TALISHA THOMPSON ROOM: 306 Age: 85 Sex: F Admission Date: 06/16/2016 : 1930 Discharge Date: 06/17/2016 Attending Physician: Jorge L Mandujano M.D. Primary Care Physician: Agustin Jones D.O. DISCHARGE SUMMARY DISCHARGE DIAGNOSES 1. Small bowel obstruction. 2. Coumadin toxicity. 3. Atrial fibrillation. HOSPITAL COURSE The patient is an 85-year-old female admitted to [facility] on 06/16/16 secondary to small bowel obstruction. Apparently, she had diffuse abdominal pain that started at approximately 3 a.m. the day of presentation. CT showed partial small bowel obstruction. The patient was admitted. She was seen in consultation by [facility] who started her on a low residue diet the day following admission. She states at the time of my interview that she is feeling somewhat better and wishes to discharge. She states she has a dog at home that she has to take care of. She states she still has some mild nausea when she eats but has started to pass some gas. Secondary to the above, I feel it is not completely unreasonable to discharge this patient, especially given that she is requesting discharge. She has improved faster than anticipated and had she not specifically requested to discharge, I might keep her overnight given that she is still nauseated with food. Again, however, she does specifically request discharge at this time. DISCHARGE MEDICATIONS 1. Ventolin two puffs q.i.d. as needed. 2. Acetaminophen 650 mg p.o. q.4 hours p.r.n. 3. Flonase two sprays each nostril daily. 4. Coumadin 4 mg Thursday, Thursday, Thursday, Thursday, Thursday and 5 mg Thursday and . 5. Wellbutrin SR 300 mg daily. 6. Remeron 30 mg daily. 7. Phenergan 25 mg p.o. q.6 hours p.r.n. 8. Bentyl 20 mg p.o. q.6 hours p.r.n. cramps to be resumed one week after discharge. 9. Cardizem CD 180 mg p.o. daily. 10. Toprol XL 50 mg p.o. daily. 11. Docusate 100 mg p.o. daily. 12. Lasix 40 mg daily. 13. Lipitor 10 mg p.o. q.h.s. 14. Phenolate spray two sprays as needed for sore throat. 15. Lumigan eye drops daily. Unit #: [id number] #: [id number] Patient: TALISHA THOMPSON 16. Americo aspirin 81 mg daily. 17. Protonix 40 mg daily. 18. Potassium chloride 10 mEq p.o. daily. 19. Nitroglycerin 0.4 mg sublingual q.5 minutes p.r.n. Three dose max as needed for chest pain. 20. Vitamin D 1,000 units daily. FOLLOWUP The patient should follow up with her primary care provider within one to two weeks. Dictated by... Jorge L Mandujano M.D. CAITY/kadi TD: 06/18/2016 08:32 JOB #: [id number] DISCHARGE SUMMARY Page 1 of 1 X Jorge L Mandujano MD X DISCHARGE SUMMARY
--- NOTE | ~2016-06-16 | CO ---
Unit #: [id number] #: [id number] Patient: TALISHA THOMPSON [id number] [address] [place], [place] [address] [id number] I MR#: [id number] NAME: TALISHA THOMPSON ROOM: 306 Age: 85 Sex: F Admission Date: 06/16/2016 : 1930 Attending Physician: Jorge L Mandujano M.D. Primary Care Physician: Agustin Jones D.O. Consultation Date: 06/16/2016 CONSULTATION REPORT REASON FOR CONSULTATION Small-bowel obstruction. CONSULTING PHYSICIAN [facility] Physician. HISTORY OF PRESENT ILLNESS Thank you very much for asking us to see Ms. Thompson. She is an 85-year-old white female, who presented with 24 hour history of crampy abdominal pain as well as nausea. She had her last bowel movement yesterday. She feels much better at this point. She has been admitted several times for partial small-bowel obstruction in the past. These have usually resolved with conservative therapy. Her past surgical history is remarkable for a ventral hernia repair x2 as well as a colonic resection. She had a similar episode in 04/2016, which resolved with conservative therapy and was found to have a small-bowel followthrough that showed a transit time of 60 minutes to get to the colon. She denies any GI bleeding. She has had no or pulmonary symptoms. Her weight has been stable and her appetite up to this point had been good. She was seen by the emergency room physician at [facility] and found on CT scan to have an ileus versus a partial small-bowel obstruction. She presents at this time for further evaluation and treatment. ALLERGIES Penicillin and sulfa. MEDICATIONS Please see med rec sheet. PAST MEDICAL HISTORY Atrial fibrillation, myocardial infarction, depression, hypertension, bronchitis, COPD, diverticulitis. She has had a partial colectomy as well as a TAHBSO, ventral hernia repair x2, breast biopsy, carpal tunnel release, orthopedic surgery for fractures, back surgery, bladder repair, and hypothyroidism. FAMILY HISTORY Noncontributory. SOCIAL HISTORY No tobacco or alcohol use. REVIEW OF SYSTEMS Unit #: [id number] #: [id number] Patient: TALISHA THOMPSON Negative except for above. IMMUNIZATION STATUS Unknown. PHYSICAL EXAMINATION GENERAL: Well-developed, well-nourished white female, in no apparent distress. Awake, alert, oriented. VITAL SIGNS: Temperature is 97.6, pulse 70, respirations 18, blood pressure 134/101. NECK: Supple. No thyromegaly or adenopathy. BACK: No CVA or spinous tenderness. CHEST: Breath sounds bilateral to auscultation clear. ABDOMEN: Flat, soft, nontender. No rebound. No peritoneal signs. No masses. Nondistended. There are no hernias palpable. EXTREMITIES: No calf tenderness. DIAGNOSTIC STUDIES LABORATORY RESULTS: Reveal the patient to have a CMP that shows a glucose of 113, BUN 28, and the rest of the CMP is normal. Amylase and lipase were normal. PT is 35.1, PTT 32.4. White count is 14.1, hemoglobin 15.4, hematocrit 47.4. IMAGING STUDIES: CT scan as mentioned previously. IMPRESSION An 85-year-old white female with a partial small-bowel obstruction versus ileus. She feels dramatically better already. We will start sips of clear liquids and follow her expectantly. We will repeat her abdominal x-rays in the morning. If she continues to improve, she can hopefully be found to be able to go home. If not, we will proceed with further imaging of the small bowel. Dictated by... Mateus Alcaraz/trinity TD: 06/17/2016 00:06 JOB #: [id number] CC: [facility] CONSULTATION REPORT Page 1 of 1 X Henry Nguyen MD CONSULTATION REPORT
[2016-06-16 05:37] LABS: BASOPHIL# 0.1 X10e3 (0-0.3); BASOPHIL% 0.4 % (0-2.5); EOSINOPHIL# 0.1 X10e3 (0-0.7); EOSINOPHIL% 0.7 % (0.0-7.0); HEMATOCRIT 47.4 % (35.0-45.0); HEMOGLOBIN 15.4 gm/dL (12.0-16.0); LYMPHOCYTE# 1.2 X10e3 (1.0-3.5); LYMPHOCYTE% 8.7 % (17.0-45.0); MEAN CELL VOLUME 97.4 FL (83-96); MEAN CORPUSCULAR HEMOGLOBIN 31.6 PG (28-34); MEAN CORPUSCULAR HGB CONC 32.4 g/dL (30-36); MEAN PLATELET VOLUME 8.6 FL (6.5-11.5); MONOCYTE# 1.1 X10e3 (0-1.0); MONOCYTE% 7.5 % (3.0-12.0); NEUTROPHIL# 11.7 X10e3 (1.5-7.1); NEUTROPHIL% 82.7 % (40-75); PLATELET COUNT 235 X10e3 (140-420); RED BLOOD COUNT 4.87 X10e (3.90-5.30); RED CELL DISTRIBUTION WIDTH 14.1 % (11.0-15.5); WHITE BLOOD COUNT 14.1 X10e3 (4.0-10.5)
[~2016-06-16 05:41] MED LIST changes: +BAYER CHEWABLE81 MG PO; +FUROSEMIDE40 MG PO; +LIPITOR PO; +PHENOL-SODIUM180 M1 PO; +PROTONIX PO
[2016-06-16 05:46] LABS: DIFF IND NO
[2016-06-16 05:53] LABS: INR 3.2; PARTIAL THROMBOPLASTIN TIME 32.4 SECONDS (23.5-31.3)
[2016-06-16 05:55] LABS: PROTHROMBIN TIME (PATIENT) 35.1 SECONDS (9.6-11.5)
[2016-06-16 06:33] LABS: URINE SOURCE CLEAN CATCH
[2016-06-16 06:38] LABS: URINE APPEARANCE CLEAR; URINE BILIRUBIN NEG (NEG); URINE BLOOD NEG (NEG); URINE COLOR YELLOW; URINE GLUCOSE NEG (NEG); URINE KETONE NEG (NEG); URINE LEUKOCYTE ESTERASE 1+ (NEG); URINE NITRATE NEG (NEG); URINE PH 5.5 (5-8); URINE PROTEIN NEG (NEG); URINE SPECIFIC GRAVITY 1.024 (1.003-1.035)
[2016-06-16 06:38] LABS: ALBUMIN SERUM 4.1 g/dL (3.5-5.0); BILIRUBIN, DIRECT 0.1 mg/dL (0.0-0.2); BILIRUBIN,INDIRECT 0.4 mg/dL (0.0-0.9); BILIRUBIN,TOTAL 0.5 mg/dL (0.2-2.0); BUN/CREATININE RATIO 23.33; CALCIUM SERUM 9.5 mg/dL (8.4-10.2); CREATININE SERUM 1.2 mg/dL (0.6-1.4); GLOM FILT RATE Estimated 41.8 mL/min (>60); POTASSIUM 3.8 mmol/L (3.5-5.1); PROTEIN TOTAL SERUM 6.9 g/dL (6.0-8.3)
[2016-06-16 06:43] LABS: CULTURE INDICATED? NO; MICRO INDICATED? YES; URINE BACTERIA NEG (NEG); URINE RBC 0-2 /[HPF] (0-2); URINE SQUAMOUS EPITHELIAL CELL FEW /[HPF]
[2016-06-17 05:00] LABS: HEMATOCRIT 41.3 % (35.0-45.0); MEAN CELL VOLUME 97.8 FL (83-96); MEAN CORPUSCULAR HEMOGLOBIN 31.6 PG (28-34); MEAN CORPUSCULAR HGB CONC 32.3 g/dL (30-36); MEAN PLATELET VOLUME 8.9 FL (6.5-11.5); RED BLOOD COUNT 4.22 X10e (3.90-5.30); RED CELL DISTRIBUTION WIDTH 14.4 % (11.0-15.5); WHITE BLOOD COUNT 5.5 X10e3 (4.0-10.5)
[2016-06-17 05:01] LABS: HEMOGLOBIN 13.4 gm/dL (12.0-16.0)
[2016-06-17 05:09] LABS: INR 2.3; PROTHROMBIN TIME (PATIENT) 24.9 SECONDS (9.6-11.5)
[2016-06-17 06:30] LABS: BUN/CREATININE RATIO 17.27; CALCIUM SERUM 8.5 mg/dL (8.4-10.2); CREATININE SERUM 1.1 mg/dL (0.6-1.4); GLOM FILT RATE Estimated 46.4 mL/min (>60); POTASSIUM 3.7 mmol/L (3.5-5.1)
== END 2016-06-17 17:50 | disposition home or self-care (01) | DRG 390 ==
LOC: CED 05:41 → CEDOF 08:40 → C3A PCU 10:20
PROVIDERS: Emergency Medicine; Internal Medicine
DX: K56.60 Unspecified intestinal obstruction (principal); I48.91 Unspecified atrial fibrillation; J44.9 Chronic obstructive pulmonary disease, unspecified; Z79.01 Long term (current) use of anticoagulants; I10 Essential (primary) hypertension; K21.9 Gastro-esophageal reflux disease without esophagitis; F32.9 Major depressive disorder, single episode, unspecified; I25.2 Old myocardial infarction; Z86.73 Personal history of transient ischemic attack (TIA), and cerebral infarction without residual deficits; Z90.710 Acquired absence of both cervix and uterus; Z88.0 Allergy status to penicillin; Z88.2 Allergy status to sulfonamides; Z79.82 Long term (current) use of aspirin; K56.7 Ileus, unspecified; T45.515A Adverse effect of anticoagulants, initial encounter
CPT/HCPCS: 36415; 74022; 74176; 80048; 80076; 81003; 82150; 83605; 83690; 85025; 85027; 85610; 85730; 94640; 96374; 96375; 99285; J2270; J2405

== ENCOUNTER → 2016-08-11 | Outpatient (CLI) | payer MEDICARE, BC ==
--- NOTE | ~2016-08-11 | CT4 ---
[facility] A Service of [facility] & [facility] RADIOLOGY TEXT RESULTS PATIENT: TALISHA THOMPSON LOCATION: [facility] : 32 UNIT #: [id number] AGE: [address]: Megan Rodríguez APRN SEX: F ORDER DR: [id number] [address] [address] [id number] O MR#: [id number] #: [id number] NAME: TALISHA THOMPSON : 1930 SEX: F STUDY DATE/TIME: 08/11/2016 15:07 UNIT: [facility] ROOM: STUDY DESCRIPTION: CT Abd and Pelv Wo Cont Attending Physician: Megan Rodríguez A.P.R.N. Referring Physician: Megan Rodríguez A.P.R.N. Ordering Physician: Megan Rodríguez A.P.R.N. Primary Care Physician: Megan Rodríguez A.P.R.N. MEDICAL IMAGING REPORT This report is preliminary unless electronic signature is present. EXAM CT of the abdomen and pelvis without contrast. INDICATIONS Left lower quadrant abdominal pain for 2 weeks. Patient has a history of obstruction. TECHNIQUE Axial CT images were obtained from the dome of the diaphragm through the symphysis pubis. No oral or intravenous contrast material was administered. This CT exam was performed with one or more of the following radiation dose reduction techniques: Automatic exposure control, adjustment of mA and/or kV according to patient size, and iterative reconstruction. FINDINGS Images through the lung bases demonstrate some stable scarring at the right lung base. Stomach and proximal small bowel appear unremarkable, as are the adrenal glands. Pancreas is mildly atrophic. Calcified granulomata are seen within the spleen. Low-attenuation lesion is identified within the liver, favored to represent a cyst. A second lesion is seen more superiorly in between the medial and lateral hepatic segments, again favored to represent a cyst. Kidneys appear normal. I do not see any abnormality of the gallbladder. Patient is status post ventral hernia repair with mesh. There is colonic diverticulosis. Uterus is surgically absent. Urinary bladder appears normal. There are small bilateral fat-containing inguinal hernias. Patient does have fairly extensive fecal burden seen throughout the colon and correlation with any history of constipation is suggested. No free fluid or adenopathy is seen within the pelvis. Patient is osteoporotic. [facility] A Service of [facility] RADIOLOGY TEXT RESULTS PATIENT: TALISHA THOMPSON LOCATION: [facility] : 32 UNIT #: [id number] AGE: [address]: Megan Rodríguez APRN SEX: F ORDER DR: IMPRESSION 1. Patient does have fairly extensive fecal burden seen throughout the colon. Correlation with history of constipation is suggested. I do not see any convincing evidence of mechanical small bowel obstruction on today's study. 2. Colonic diverticulosis without any evidence of diverticulitis. 3. Uterus is surgically absent. 4. Suspected hepatic cyst. 5. Changes of prior ventral hernia repair with mesh. Patient also appears to be status post colonic resection as well. Again, however, I do not see any convincing evidence of obstruction. 6. Please see the body of the report for any other additional incidental findings. Dictated by... Alba Saxena M.D. THIS IS AN ELECTRONICALLY VERIFIED REPORT Alba Saxena M.D. at 08/12/2016 5:01 PM AFF/psc TD: 08/12/2016 01:32 JOB #: [id number] MEDICAL IMAGING REPORT Page 1 of 1
== END | disposition home or self-care (01) ==
LOC: SCT 14:40
DX: R10.32 Left lower quadrant pain (principal); K57.30 Diverticulosis of large intestine without perforation or abscess without bleeding; Z90.710 Acquired absence of both cervix and uterus; Z98.890 Other specified postprocedural states; Z87.19 Personal history of other diseases of the digestive system
CPT/HCPCS: 74176

== ENCOUNTER 2016-10-10 10:42 | Emergency (ER) | payer MEDICARE, BC ==
--- NOTE | ~2016-10-10 | CT71 ---
[facility] A Service of [facility] RADIOLOGY TEXT RESULTS PATIENT: TALISHA THOMPSON LOCATION: SED : 32 UNIT #: [id number] AGE: [address]: Zaheer Ontiveros MD SEX: F ORDER DR: [id number] [address] [address] [id number] E MR#: [id number] Acc #: [id number] NAME: TALISHA THOMPSON : 1930 SEX: F STUDY DATE/TIME: 10/10/2016 11:47 UNIT: SED ROOM: STUDY DESCRIPTION: CT Head Wo Contrast Attending Physician: Zaheer Ontiveros M.D. Ordering Physician: Zaheer Ontiveros M.D. Primary Care Physician: Megan Rodríguez A.P.R.N. MEDICAL IMAGING REPORT This report is preliminary unless electronic signature is present. EXAM CT head 10/10/2016 HISTORY Dizziness. Dizzy, slurred speech off on since yesterday. It is intermittent now. History of mini stroke x2 COPD, atrial fibrillation, myocardial infarction, depression, CHF, HTN. FINDINGS CT head performed skull base through vertex without intravenous contrast. COMPARISON STUDIES 04/20/2016. TECHNIQUE This CT exam was performed with one or more of the following radiation dose reduction techniques: automatic exposure control, adjustment of mA and/or kV according to patient size, and iterative reconstruction. FINDINGS No acute abnormality in the brainstem. Some areas of beam hardening artifact. The cerebellum and cerebral hemispheres show overall preservation of verduzco matter - white matter differentiation. There is no evidence of hemorrhage or acute cortical ischemia. The midline structures are nondisplaced. The basal ganglia are intact. The ventricles, cisterns and sulci show mild generalized enlargement consistent with mild generalized atrophy. There is no intra or extraaxial mass effect or abnormal intracranial fluid collection. The visualized intraorbital soft tissues are unremarkable. There are cavernous carotid arterial calcifications. The visualized paranasal sinuses and mastoid air cells are clear. No fracture. [facility] A Service of [facility] RADIOLOGY TEXT RESULTS PATIENT: TALISHA THOMPSON LOCATION: SED : 32 UNIT #: [id number] AGE: [address]: Zaheer Ontiveros MD SEX: F ORDER DR: IMPRESSION 1. No acute abnormalities seen in the brain. If the patient has ongoing neurologic symptoms, consider followup imaging. 2. Mild generalized atrophy. Stable. 3. Cavernous carotid arterial calcifications. Dictated by... Sha Barrera M.D. THIS IS AN ELECTRONICALLY VERIFIED REPORT Sha Barrera M.D. at 10/13/2016 12:58 PM Deborah TD: 10/11/2016 01:03 JOB #: [id number] MEDICAL IMAGING REPORT Page 1 of 1
--- NOTE | ~2016-10-10 | EKG ---
PATIENT: TALISHA THOMPSON UNIT #: [id number] Ventricular Rate: 66 BPM Atrial Rate: 500 BPM QRS Duration: 92 ms Q-T Interval: 414 ms QTC Calculation(Bezet): 434 ms Calculated R [place]: 0 degrees Calculated T [place]: -31 degrees Diagnosis Line: Atrial fibrillation Diagnosis Line: Incomplete right bundle branch block Diagnosis Line: T wave abnormality, consider anterior ischemia or Diagnosis Line: digitalis effect Diagnosis Line: Abnormal ECG Diagnosis Line: When compared with ECG of 20-APR-2016 16:03, Diagnosis Line: No significant change was found Diagnosis Line: Confirmed by WONG RANDALL MD ([id number]) on Diagnosis Line: 10/13/2016 1:49:32 PM INTERPRETING MD: TONIA DONALDSON
[2016-10-10 11:29] LABS: POC - CKMB <1.0 ng/mL (0.0-7.9); POC - TROPONIN <0.05 ng/mL (<=0.05)
[2016-10-10 11:46] LABS: ALBUMIN SERUM 3.8 g/dL (3.5-5.0); BILIRUBIN, DIRECT 0.1 mg/dL (0.0-0.2); BILIRUBIN,INDIRECT 0.5 mg/dL (0.0-0.9); BILIRUBIN,TOTAL 0.6 mg/dL (0.2-2.0); BUN/CREATININE RATIO 15.83; CALCIUM SERUM 8.9 mg/dL (8.4-10.2); CREATININE SERUM 1.2 mg/dL (0.6-1.4); GLOM FILT RATE Estimated 41.8 mL/min (>60); PROTEIN TOTAL SERUM 6.7 g/dL (6.0-8.3)
[2016-10-10 12:13] LABS: BASOPHIL% 0.7 % (0-2.5); EOSINOPHIL# 0.1 X10e3 (0-0.7); EOSINOPHIL% 2.9 % (0.0-7.0); HEMATOCRIT 45.9 % (35.0-45.0); HEMOGLOBIN 15.7 gm/dL (12.0-16.0); LYMPHOCYTE# 1.4 X10e3 (1.0-3.5); LYMPHOCYTE% 30.2 % (17.0-45.0); MEAN CORPUSCULAR HEMOGLOBIN 33.4 PG (28-34); MEAN CORPUSCULAR HGB CONC 34.1 g/dL (30-36); MEAN PLATELET VOLUME 8.7 FL (6.5-11.5); MONOCYTE# 0.4 X10e3 (0-1.0); MONOCYTE% 7.6 % (3.0-12.0); NEUTROPHIL# 2.8 X10e3 (1.5-7.1); NEUTROPHIL% 58.6 % (40-75); PLATELET COUNT 239 X10e3 (140-420); RED BLOOD COUNT 4.69 X10e (3.90-5.30); RED CELL DISTRIBUTION WIDTH 14.3 % (11.0-15.5); WHITE BLOOD COUNT 4.8 X10e3 (4.0-10.5)
[2016-10-10 12:14] LABS: DIFF IND NO
== END 2016-10-10 13:55 | disposition home or self-care (01) ==
LOC: SED 10:42
PROVIDERS: Emergency Medicine
DX: R42 Dizziness and giddiness (principal); R47.9 Unspecified speech disturbances; R03.0 Elevated blood-pressure reading, without diagnosis of hypertension; Z88.0 Allergy status to penicillin; Z88.2 Allergy status to sulfonamides; Z88.5 Allergy status to narcotic agent
CPT/HCPCS: 36415; 70450; 80048; 80076; 82553; 82947; 83874; 84484; 85025; 93005; 99285

== ENCOUNTER → 2016-10-30 | Outpatient (CLI) | payer MEDICARE, BC ==
--- NOTE | ~2016-10-30 | MR17 ---
[facility] A Service of [facility] / [facility] RADIOLOGY TEXT RESULTS PATIENT: TALISHA THOMPSON LOCATION: CMRI : 32 UNIT #: [id number] AGE: [address]: MERISSA MARQUES DO SEX: F ORDER DR: [id number] [facility] [address] [place], [place] [address] [id number] O MR#: [id number] Acc #: [id number] NAME: TALISHA THOMPSON : 1930 SEX: F STUDY DATE/TIME: 10/30/2016 17:17 UNIT: [facility] ROOM: STUDY DESCRIPTION: MR Brain WWo Contrast Attending Physician: Merissa Marques D.O. Referring Physician: Merissa Marques D.O. Ordering Physician: Merissa Marques D.O. Primary Care Physician: Megan Rodríguez A.P.R.N. MRI CENTER REPORT This report is preliminary unless electronic signature is present. EXAM Brain MRI with and without contrast. COMPARISON 07/20/2014 HISTORY Dizziness and slurred speech starting 2 years ago with multiple TIAs over the past year. TECHNIQUE Multiplanar imaging brain was performed with and without contrast. 12 mL of MultiHance was used. FINDINGS On diffusion-weighted imaging, there is no evidence of abnormal restricted diffusion to suggest a recent infarct. The routine brain images show generalized atrophy with mild chronic ischemic changes around the ventricles. This is stable since the previous exam. There is no evidence of mass lesion, hemorrhage or edema. 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 They are unchanged in size from the previous examination. These lesions are typically asymptomatic, but can present with symptoms of trigeminal neuralgia. It is unchanged from the previous examination. Also noted is mucosal thickening in the sphenoid sinus and posterior ethmoid air cells. IMPRESSION 1. 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 2. Chronic sphenoid sinus inflammatory disease. 3. 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 [facility] A Service [facility] RADIOLOGY TEXT RESULTS PATIENT: TALISHA THOMPSON LOCATION: CMRI : 32 UNIT #: [id number] AGE: [address]: MERISSA MARQUES DO SEX: F ORDER DR: Dictated by... Merissa Salas M.D. THIS IS AN ELECTRONICALLY VERIFIED REPORT Merissa Salas M.D. at 11/02/2016 10:57 AM JU/hannah TD: 10/31/2016 17:43 JOB #: [id number] MRI CENTER REPORT Page 1 of 1 COPY
[2016-10-30 17:16] LABS: POC - CREATININE 1.16 mg/dL (0.44-1.03)
== END | disposition home or self-care (01) ==
LOC: CMRI 10-24 18:00
PROVIDERS: Family Medicine
DX: R42 Dizziness and giddiness (principal); R47.81 Slurred speech; G31.9 Degenerative disease of nervous system, unspecified; Q01.8 Encephalocele of other sites
CPT/HCPCS: 70553; 82565; A9577